=== PATIENT | female | born 1935 | race Caucasian/White ===

== ENCOUNTER → 2020-07-27 10:38 | Outpatient (BNVA) | payer MEDICARE, MEDICAID, SELFPAY | PROVIDERS: Family Provider Family Medicine; PCP Family Medicine; Visit Provider Family Medicine | DX: J45.909 Unspecified asthma, uncomplicated (principal); I10 Essential (primary) hypertension; M25.512 Pain in left shoulder; R53.83 Other fatigue; E55.9 Vitamin D deficiency, unspecified; G89.4 Chronic pain syndrome; R30.0 Dysuria; Z79.01 Long term (current) use of anticoagulants; Z86.711 Personal history of pulmonary embolism | CPT/HCPCS: 80053; 80061; 81000; 82652; 85025; 85651; 86140 ==

== ENCOUNTER → 2020-08-05 13:34 | Outpatient (BNVA) | payer MEDICARE, MEDICAID, SELFPAY | PROVIDERS: Family Provider Family Medicine; PCP Family Medicine; Referring Provider Family Medicine; Visit Provider Specialist | DX: S49.90XA Unspecified injury of shoulder and upper arm, unspecified arm, initial encounter (principal); M19.012 Primary osteoarthritis, left shoulder | CPT/HCPCS: 73030 ==